=== PATIENT | female | born 1980 | race Two or more races ===

== ENCOUNTER 2016-05-28 06:51 | Day surgery (SDC) | payer OTHER ==
--- NOTE | 2016-05-28 12:29 | PROCNOTE ---
ROSEY BROWN : 1980 [id number] DATE OF PROCEDURE: May 28, 2016 PROCEDURE: GASTROSTOMY TUBE CHANGE. 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 The mother of the patient requests a gastrostomy tube change at this point. MEDICATIONS: None. PROCEDURE: The existing gastrostomy tube balloon was deflated with a syringe and the 24 Turkish gastrostomy tube removed. A replacement 24 Turkish gastrostomy tube was placed through the abdominal wall into the stomach and the balloon inflated with 6 mL of water. The gastrostomy tube was secured to the abdominal wall with a bumper. IMPRESSION: Gastrostomy tube change. COMMENT: The gastrostomy tube use will be resumed as previously prescribed. Hydrocortisone cream is re-prescribed for irritation at the gastrostomy tube site. Liquid famotidine is additionally prescribed for complaints of abdominal post prandial distress. Medical followup will be by Dr. Jessica Canada. Cc: Epifanio Harden M.D.
== END 2016-05-28 08:25 | disposition home or self-care (01) ==
LOC: SDC 06:51
PROVIDERS: ATTEND Internal Medicine Gastroenterology
PROC: 0D20XUZ Change Feeding Device in Upper Intestinal Tract, External Approach (ICD-10-PCS; principal; 2016-05-28)
DX: Z43.1 Encounter for attention to gastrostomy (principal); F79 Unspecified intellectual disabilities